=== PATIENT | female | born 1975 | race Caucasian/White ===

== ENCOUNTER 2019-02-06 21:14 | Emergency (ER) | payer BC ==
[~2019-02-06] VITALS: Ht 160 cm; Wt 87.5 kg
[2019-02-06 21:55] VITALS: BP 138/81; Ht 160 cm; Wt 87.5 kg
== END 2019-02-07 00:18 | disposition left against medical advice (07) ==
LOC: ED 21:14
DX: Z53.21 Procedure and treatment not carried out due to patient leaving prior to being seen by health care provider (principal)

== ENCOUNTER 2019-03-01 13:02 | Emergency (ER) | payer BC ==
[~2019-03-01] VITALS: Ht 160 cm; Wt 89.1 kg
[2019-03-01 13:10] VITALS: BP 125/47; Ht 160 cm; Wt 89.1 kg
== END 2019-03-01 13:54 | disposition home or self-care (01) ==
LOC: ED 13:02
DX: M25.531 Pain in right wrist (principal); M25.532 Pain in left wrist; G89.29 Other chronic pain; M25.562 Pain in left knee; M25.561 Pain in right knee; M54.2 Cervicalgia; F41.9 Anxiety disorder, unspecified; F32.9 Major depressive disorder, single episode, unspecified; M79.7 Fibromyalgia; Z88.0 Allergy status to penicillin; Z88.1 Allergy status to other antibiotic agents
CPT/HCPCS: J1100